=== PATIENT | female | born 2000 | race African-American/Black ===

== ENCOUNTER 2018-10-20 23:17 | Emergency (ER) | payer OTHER ==
[~2018-10-20] VITALS: Ht 165.1 cm; Wt 77.1 kg
[2018-10-20 23:23] VITALS: Ht 165.1 cm; Wt 77.1 kg
[2018-10-21 01:00] LABS: PLATELET COUNT 238 x10^3mcL (130-400); RED BLOOD CELLS 2.34 M/mm3 (4.10-5.10)
[2018-10-21 01:06] LABS: RED CELL DISTRIBUTION WIDTH 18.6 % (11.5-14.5)
[2018-10-21 01:20] LABS: CALCIUM 8.4 mg/dL (8.5-10.1); CARBON DIOXIDE 23.6 mmol/L (21-32); CHLORIDE SERUM 105 mmol/L (98-107); CREATININE SERUM 0.5 mg/dL (0.6-1.0); GFR1 > 60 mL/min; GLUCOSE SERUM 93 mg/dL (74-106); POTASSIUM SERUM 3.1 mmol/L (3.5-5.1); SODIUM SERUM 140 mmol/L (136-145)
[2018-10-21 01:25] LABS: ALBUMIN 4.4 g/dL (3.4-5.0); ALKALINE PHOSPHATASE 129 U/L (46-116); ALT/SGPT 18 U/L (14-59); AST/SGOT 19 U/L (15-37); BILIRUBIN TOTAL 0.86 mg/dL (0.20-1.00)
[2018-10-21 01:37] LABS: TOTAL PROTEIN, SERUM 8.4 g/dL (6.4-8.2)
[2018-10-21 02:31] VITALS: BP 113/83
== END 2018-10-21 04:15 | disposition home or self-care (01) ==
LOC: ED 23:17
PROVIDERS: Emergency Medicine
DX: J06.9 Acute upper respiratory infection, unspecified (principal); D57.00 Hb-SS disease with crisis, unspecified; J45.909 Unspecified asthma, uncomplicated; G43.909 Migraine, unspecified, not intractable, without status migrainosus; Z86.2 Personal history of diseases of the blood and blood-forming organs and certain disorders involving the immune mechanism; Z88.6 Allergy status to analgesic agent; Z88.8 Allergy status to other drugs, medicaments and biological substances; Z91.018 Allergy to other foods
CPT/HCPCS: 87804; J1642; J2270; J2405; J7030; Q0092

== ENCOUNTER 2020-05-13 22:23 | Emergency (ER) | payer OTHER ==
[~2020-05-13] VITALS: Ht 167.6 cm; Wt 74.4 kg
[2020-05-13 22:35] VITALS: Ht 167.6 cm; Wt 74.4 kg
[2020-05-14 01:52] LABS: microscopic required? NO
[2020-05-14 02:10] LABS: UA SPECIFIC GRAVITY 1.015 (1.005-1.035); urine erythrocyte NEGATIVE (NEGATIVE)
[2020-05-14 03:24] VITALS: BP 108/76
== END 2020-05-14 03:24 | disposition home or self-care (01) ==
LOC: ED 22:23
PROVIDERS: Emergency Medicine
DX: D57.80 Other sickle-cell disorders without crisis (principal); J45.909 Unspecified asthma, uncomplicated; G43.909 Migraine, unspecified, not intractable, without status migrainosus; Z86.2 Personal history of diseases of the blood and blood-forming organs and certain disorders involving the immune mechanism; Z88.6 Allergy status to analgesic agent; Z88.8 Allergy status to other drugs, medicaments and biological substances; Z91.018 Allergy to other foods
CPT/HCPCS: 83880; 87804; J2270; J2405; J3490; J7030

== ENCOUNTER 2020-10-09 21:21 | Inpatient (IN) | payer OTHER ==
[~2020-10-09] VITALS: Ht 165.1 cm; Wt 84.9 kg
[2020-10-09 21:59] VITALS: Ht 165.1 cm; Wt 84.9 kg
[2020-10-10 05:39] LABS: PLATELET COUNT 292 x10^3mcL (179-408)
[2020-10-10 05:46] LABS: BASOPHIL % 2.1 % (0.2-1.3); RED CELL DISTRIBUTION WIDTH 28.9 % (12.3-17.7)
[2020-10-10 05:54] LABS: RED BLOOD CELLS 2.22 M/mm3 (4.10-5.10)
[2020-10-10 06:34] LABS: rbc morphology (normal/abnorm) ABNORMAL (NORMAL)
[2020-10-10 06:35] LABS: ovalocyte/elliptocyte 1+
[2020-10-10] MEDS ORDERED: CYMBALTA20 M1 PO (08:12)
[2020-10-10] MEDS ORDERED: HORIZANT600 M1 PO (08:13)
[2020-10-10] MEDS ORDERED: ROBAXIN-750750 MG PO (08:13)
[2020-10-10] MEDS ORDERED: NORCO1 TA2 PO (08:13)
[2020-10-10] MEDS ORDERED: FOLIC ACID PO (08:14)
[2020-10-10 11:29] LABS: AMPHETAMINE QUAL UR NONE DETECTED (See below)
[2020-10-10 15:40] VITALS: BP 113/72
[2020-10-10 16:10] LABS: T3 TOTAL 1.12 ng/mL
[2020-10-10 17:06] LABS: FREE T4 0.7 ng/dL (0.76-1.46); FREE THYROXINE INDEX 1.9 ug/dL (1.4-4.5); T4(THYROXINE) 5.3 ug/dL (4.7-13.3)
[2020-10-10 17:23] LABS: CHOLESTEROL/HDL RATIO 2.7; MAGNESIUM 2.3 mg/dL (1.8-2.4); PHOSPHOROUS 4.3 mg/dL (2.5-4.9)
[2020-10-10 21:37] VITALS: BP 98/67
[2020-10-11 06:15] VITALS: BP 98/60
[2020-10-11 08:36] VITALS: BP 130/58
[2020-10-11 11:25] VITALS: BP 126/57
[2020-10-11 14:49] VITALS: BP 126/57
== END 2020-10-11 15:27 | disposition home or self-care (01) | DRG 662 ==
LOC: ED 21:21 → MU 10-10 06:03
PROVIDERS: Emergency Medicine; ADMIT Family Medicine; ATTEND Family Medicine
PROC: 02HV33Z Insertion of Infusion Device into Superior Vena Cava, Percutaneous Approach (ICD-10-PCS; principal; 2020-10-10)
PROC: B548ZZA Ultrasonography of Superior Vena Cava, Guidance (ICD-10-PCS; 2020-10-10)
DX: D57.00 Hb-SS disease with crisis, unspecified (principal); G43.909 Migraine, unspecified, not intractable, without status migrainosus; Z88.8 Allergy status to other drugs, medicaments and biological substances; J45.909 Unspecified asthma, uncomplicated; Z20.828 Contact with and (suspected) exposure to other viral communicable diseases
CPT/HCPCS: 83880; 84439; 87804; G0378; J1170; J1200; J2270; J2405; J3010; J3490; J7030; Q0162